=== PATIENT | male | born 1990 | race Caucasian/White ===

== ENCOUNTER 2020-12-10 10:30 | Emergency (ER) | payer SELFPAY ==
[2020-12-10] MEDS ORDERED: Sodium Chloride 0.9% 1,000 ML IV ONE (10:35)
[2020-12-10] MEDS ORDERED: HYDROmorphone 0.5 MG/0.5 ML Syringe IVPUSH ONE ×2 (10:43→12:41)
[2020-12-10] MEDS ORDERED: Sodium Chloride 0.9% 10 ML Syringe FLUSH ONE (10:48)
[2020-12-10] MEDS ORDERED: Sodium Chloride 0.9% 80 ML IV SCH (11:00)
[2020-12-10] MEDS ORDERED: Iopamidol 612 MG/ML 100 ML Bottle IV SCH (11:00)
[2020-12-10] MEDS ORDERED: Ketorolac 30 MG/ML SDV IVPUSH ONE (11:42)
--- NOTE | 2020-12-10 12:02 | EDM.PDOC ---
ED HPI GENERAL MEDICAL PROBLEM - General Chief Complaint: Trauma Stated Complaint: FELL OFF ROOF Time Seen by Provider: 12/10/20 10:40 Source of Information: Reports: Patient History Limitations: Reports: No Limitations - History of Present Illness INITIAL COMMENTS - FREE TEXT/NARRATIVE: 30-year-old male was up on a rough blowing leaves when he came across a wasp nest and got stung on his flank. While trying to get away from the wasps he slipped off of the roof, falling 2 stories and landing on his back on the grass. He has significant back pain, pleuritic pain with breathing, but no neurologic deficits as he was able to come into the emergency room with the assistance of his brother. Otherwise healthy. Trauma code was called. Onset: Sudden Duration: Hour(s): (Within the last hour) Location: Reports: Back Associated Symptoms: Reports: Other (Denies any head or neck injury). Denies: Fever/Chills, Headaches, Nausea/Vomiting, Weakness Back Pain Score (Numeric/FACES): 8 - Related Data Allergies Allergy/AdvReac Type Severity Reaction Status Date / Time No Known Allergies Allergy Verified 12/10/20 10:46 Home Meds: Home Meds NK [No Known Home Meds] 12/10/20 [History] Past Medical History Hematologic History: Reports: Other (See Below) Other Hematologic History: lymph nodes removed under left armpit. Social & Family History - Tobacco Use Tobacco Use Status *Q: Light Tobacco User Years of Tobacco use: 1 Packs/Tins Daily: 0 - Caffeine Use Caffeine Use: Reports: Coffee, Energy Drinks, Soda, Tea - Recreational Drug Use Recreational Drug Use: No Review of Systems - Review of Systems Review Of Systems: See Below Constitutional: Denies: Fever Eyes: Denies: Tunnel Vision Ears: Denies: Dizziness Mouth/Throat: Reports: No Symptoms Respiratory: Reports: Pleuritic Chest Pain Cardiovascular: Denies: Chest Pain GI/Abdominal: Reports: Other (No pain, feels somewhat bloated) Genitourinary: Reports: No Symptoms Musculoskeletal: Reports: Back Pain (Only pain is in his back and posterior chest with breathing) Skin: Denies: Bruising Neurological: Reports: No Symptoms (No neurologic deficits such as distal paresthesias or weakness) Psychiatric: Reports: No Symptoms ED EXAM, GENERAL - Physical Exam Exam: See Below Free Text/Narrative:: Primary survey reveals a very stable but uncomfortable male, Ora Coma Scale 15 and vitals normal other than mild hypertension likely reactive due to discomfort Exam Limited By: No Limitations General Appearance: Alert, Anxious, Moderate Distress Eye Exam: Bilateral Eye: Normal Inspection Head: Atraumatic Neck: Supple, Non-Tender Respiratory/Chest: No Respiratory Distress, Lungs Clear Cardiovascular: Regular Rate, Rhythm. No: Tachycardia GI/Abdominal: Soft, Non-Tender Back Exam: Vertebral Tenderness (Some vertebral tenderness in the mid back, and paralumbar muscle spasm and pain with palpation) Extremities: Normal Inspection Neurological: Alert, Oriented, No Motor/Sensory Deficits Psychiatric: Anxious Skin Exam: Warm, Dry Course - Vital Signs Last Recorded V/S: Last Vital Signs Temp 97.9 F 12/10/20 11:17 Pulse 72 12/10/20 13:36 Resp 18 12/10/20 11:17 BP 110/42 L 12/10/20 13:36 Pulse Ox 98 12/10/20 13:36 - Orders/Labs/Meds Labs: Laboratory Tests 12/10/20 12/10/20 Range/Units 10:40 10:40 WBC 6.2 (4.5-11.0) K/uL RBC 5.34 (4.30-5.90) M/uL Hgb 16.7 H (12.0-15.0) g/dL Hct 46.9 (40.0-54.0) % MCV 88 (80-98) fL MCH 31 (27-31) pg MCHC 36 (32-36) % Plt Count 132 L (150-400) K/uL Neut % (Auto) 36.3 (36-66) % Lymph % (Auto) 48.5 H (24-44) % [place] % (Auto) 12.1 H (2-6) % Eos % (Auto) 2.6 (2-4) % Baso % (Auto) 0.5 (0-1) % Sodium 142 (140-148) mmol/L Potassium 3.7 (3.6-5.2) mmol/L Chloride 103 (100-108) mmol/L Carbon Dioxide 26 (21-32) mmol/L Anion Gap 13.3 (5.0-14.0) mmol/L BUN 16 (7-18) mg/dL Creatinine 1.0 (0.8-1.3) mg/dL Est Cr Clr Drug Dosing 113.56 mL/min Estimated GFR (MDRD) > 60 (>60) Glucose 103 (74-106) mg/dL Calcium 9.2 (8.5-10.1) mg/dL Meds: Medications Discontinued Medications Generic Name Dose Route Start Last Admin Trade Name Freq PRN Reason Stop Dose Admin Hydromorphone HCl 0.5 mg 12/10/20 10:43 12/10/20 10:55 Hydromorphone 0.5 Mg/0.5 Ml Syringe IVPUSH 12/10/20 10:44 0.5 mg ONETIME ONE Administration Hydromorphone HCl 0.5 mg 12/10/20 12:41 12/10/20 14:04 Hydromorphone 0.5 Mg/0.5 Ml Syringe IVPUSH 12/10/20 12:42 0.5 mg ONETIME ONE Administration Sodium Chloride 1,000 mls @ 999 mls/hr 12/10/20 10:35 12/10/20 10:57 Normal Saline IV 12/10/20 11:35 999 mls/hr ONETIME ONE Administration Sodium Chloride 80 mls @ 3 mls/sec 12/10/20 11:00 12/10/20 11:14 Normal Saline IV 12/10/20 16:00 3 mls/sec ASDIRECTED TARYN Administration Iopamidol 100 ml 12/10/20 11:00 12/10/20 11:14 Iopamidol 612 Mg/Ml 100 Ml Bottle IV 12/10/20 14:00 100 ml . DIRECTED TARYN Administration Ketorolac Tromethamine 30 mg 12/10/20 11:42 12/10/20 12:03 Ketorolac 30 Mg/Ml Sdv IVPUSH 12/10/20 11:43 30 mg ONETIME ONE Administration Sodium Chloride 10 ml 12/10/20 10:48 12/10/20 11:14 Sodium Chloride 0.9% 10 Ml Syringe FLUSH 12/10/20 10:49 10 ml ONETIME ONE Administration - Re-Assessments/Exams Free Text/Narrative Re-Assessment/Exam: 12/10/20 12:02 An IV was started, patient was given 0.5 mg of IV Dilaudid, and a chest abdomen pelvis CT with IV contrast was ordered. Results are pending. CBC and BMP were also obtained 12/10/20 14:51 CT showed a anterior wedge compression fracture of T11 but no other findings. After a second dose of IV Dilaudid, and 30 mg of IV Toradol the patient was able to ambulate without significant difficulty. He was discharged with additional doses of Percocet and a copy of his CT scan, and they are going to travel back to the [facility] to home and he will recheck in a few days. Departure - Departure Time of Disposition: 14:23 Disposition: Home, Self-Care 01 Clinical Impression: Compression fracture of T11 vertebra Qualifiers: Encounter type: initial encounter Qualified Code(s): S22.080A - Wedge compression fracture of T11-T12 vertebra, initial encounter for closed fracture - Discharge Information Instructions: Spinal Compression Fracture Referrals: PCP,None [Primary Care Provider] - Forms: ED Department Discharge Care Plan Goals: Recheck in the next 5 to 7 days when home if possible. Increase activity as tolerated, a regular dose of anti-inflammatory will be helpful and add stronger pain medication if needed. Recheck at any time you feel you are worsening such as shortness of breath or uncontrolled pain. Sepsis Event Note (ED) - Evaluation Sepsis Screening Result: No Definite Risk - Focused Exam Vital Signs: Vital Signs Temp Pulse Resp BP Pulse Ox 12/10/20 13:36 72 110/42 L 98 12/10/20 13:24 73 110/45 L 99 12/10/20 12:35 83 115/50 L 95 12/10/20 12:05 74 107/55 L 97 12/10/20 11:35 67 119/65 100 12/10/20 11:17 97.9 F 69 18 123/61 99 12/10/20 10:44 97.9 F 98 20 126/69 100 12/10/20 10:39 97.9 F 98 20 126/69 100
--- NOTE | 2020-12-10 12:29 | CRLCT ---
For Patients: As a result of the Century Cures Act, medical imaging exams and procedure reports are released immediately into your electronic medical record. You may view this report before your referring provider. If you have questions, please contact your health care provider. INDICATION: Trauma. COMPARISON: None. TECHNIQUE: Technique: Routine axial CT images of the chest, abdomen and pelvis following the uneventful administration of IV contrast. Sagittal and coronal reformatted series were also generated and reviewed. - Total exam DLP 690 mGy-cm. FINDINGS: Chest: Mild atelectasis in both lungs. No focal consolidation or contusion. No pneumothorax. No suspicious pulmonary nodule or mass. The central airways are patent. Heart size is normal. Normal caliber aorta. No pleural or pericardial effusion. Right greater than left axillary lymphadenopathy. The largest node is in the right axilla measuring 5.0 cm long axis. No hilar or mediastinal lymphadenopathy. Partial visualization of the thyroid is unremarkable. - Abdomen/pelvis: The liver, gallbladder, pancreas, spleen and adrenal glands are unremarkable. There is symmetric enhancement of the kidneys. No hydronephrosis. Normal caliber aorta. No suspicious mesenteric, retroperitoneal or pelvic lymphadenopathy. No bowel obstruction or ascites. No focal inflammatory change, perforation or abscess. The urinary bladder is partially distended, but otherwise unremarkable. Prostate seminal vesicles are normal. - Osseous structures: Multilevel Schmorl`s nodes in the spine. IMPRESSION: 1. Atraumatic appearance of the chest, abdomen and pelvis. 2. Right greater than left axillary lymphadenopathy, nonspecific. These may be reactive; however, lymphoproliferative disorder such as lymphoma is also in the differential. Follow-up is recommended. Tissue sampling may be required to exclude malignancy. 3. Mild bilateral dependent atelectasis. 4. Other findings, as above. Dictated by Ramírez Collins MD @ 12/10/2020 12:27:07 PM Please note that all CT scans at this facility use dose modulation, iterative reconstruction, and/or weight-based dosing when appropriate to reduce radiation dose to as low as reasonably achievable. Dictated by: Ramírez Collins MD @ 12/10/2020 12:27:25 (Electronically Signed)
== END 2020-12-10 14:23 | disposition home or self-care (01) ==
LOC: JP.ED 10:30
DX: S22.080A Wedge compression fracture of T11-T12 vertebra, initial encounter for closed fracture (principal); Z72.0 Tobacco use; W13.2XXA Fall from, out of or through roof, initial encounter
CPT/HCPCS: 36415; 71260; 74177; 80048; 85025; 96374; 96375; 96376; 99284; J1170; J1885; J7030; Q9967